=== PATIENT | male | born 1940 | race Caucasian/White ===

== ENCOUNTER 2016-12-05 14:19 | Inpatient (IN) | payer MEDICARE ==
[~2016-12-05] VITALS: Ht 175.3 cm; Wt 93.1 kg
[2016-12-06] MEDS ORDERED: SIMV40TA PO (08:33)
[2016-12-06] MEDS ORDERED: METF500T PO (08:33)
[2016-12-06] MEDS ORDERED: ASPI-110 PO (08:33)
[2016-12-06] MEDS ORDERED: LISI-515 PO (08:33)
[2016-12-06] MEDS ORDERED: PROS5TAB PO (08:33)
[2016-12-06] MEDS ORDERED: COQ-100C5 PO (08:33)
[2016-12-12 10:25] VITALS: BP 123/77; PULSE 76; RESP 18; TEMP 98.3; O2SAT 96
[2016-12-12] MEDS ORDERED: METOPROLOL TARTRATE 25 MG TAB PO PRN (10:30)
[2016-12-12] MEDS ORDERED: INSULIN HUMAN REGULAR 1,000 UNITS/10 ML VIAL SQ PRN (10:30)
[2016-12-12] MEDS ORDERED: CHLORHEXIDINE GLUCONATE 2 % 1 PACK (2 CLOTHS) TOPICAL PRN (10:30)
[2016-12-12] MEDS ORDERED: LACTATED RINGER'S 1000 ML IV PRN (10:30)
[2016-12-12] MEDS ORDERED: POVIDONE IODINE 5% (ANTISEPSIS KIT) 4 APPLICATIONS EACH NARE PRN (10:30)
[2016-12-12] MEDS ORDERED: SODIUM CHLORID 0.9% 500 ML IV PRN (10:30)
[2016-12-12] MEDS ORDERED: GENTAMICIN SULFATE 80 MG/2 ML VIAL ONE (10:34)
[2016-12-12] MEDS ORDERED: VANCOMYCIN HCL 1000 MG VIAL ONE (10:36)
[2016-12-12] MEDS ORDERED: SODIUM CHLOR 0.9% 250 ML INJ 250 ML ONE (10:37)
[2016-12-12] MEDS ORDERED: EXPAREL PERI-ARTICULAR INJECTION (TOTAL VOL. 60 ML) P-ARTICULR SCH ×2 (10:45)
[2016-12-12] MEDS ORDERED: SODIUM CHLORIDE 0.9% IV SCH (10:45)
[2016-12-12] MEDS ORDERED: ceFAZolin 2 GM PREMIX 50 ML IV SCH (10:45)
[2016-12-12] MEDS ORDERED: TRANEXAMIC ACID IV SCH (10:45)
[2016-12-12] MEDS ORDERED: POVIDONE IODINE 7.5% SCRUB 118 ML BOTTLE TOPICAL SCH (10:45)
[2016-12-12] MEDS ORDERED: VANCOMYCIN 1000 MG/NS 250 ML (for <70 kg) IV SCH ×2 (10:45)
--- NOTE | 2016-12-12 11:37 | MH ---
cc: RADHA VALDEZ DATE OF ADMISSION 12/12/2016 ADMISSION DIAGNOSIS Osteoarthritis of the left hip. HISTORY This patient is a 76-year-old white male status post previous right total hip replacement arthroplasty for osteoarthritis. The patient had that surgery performed on 03/23/2013. The patient has done well but now has progressive arthritis of the left hip. He presents now for surgical treatment. The patient notes that he is taking hydrocodone narcotics for pain. He has been using assistive gait aid and has had nonsteroidal anti-inflammatory medications, physical therapy and altered activities. He now presents for surgical treatment of his left hip. PAST MEDICAL HISTORY, SOCIAL HISTORY AND FAMILY HISTORY System see attached notes. REVIEW OF SYSTEMS See attached notes. PHYSICAL EXAMINATION VITAL SIGNS: 5 feet 5 inches, 206 pounds. BMI of 34.5. Blood pressure 138/80. HEENT: Normocephalic, atraumatic. Pupils equal, round, reactive to light and accommodation. Extraocular motions intact. NECK: Supple. CHEST: Clear. HEART: Regular rate and rhythm. ABDOMEN: Soft, nontender, normoactive bowel sounds. MUSCULOSKELETAL: Left hip restricted range of motion, pain with range of motion especially internal and external rotation. Well-healed anterior incision over the right hip. IMPRESSION Osteoarthritis of the left hip. PLAN Left total hip replacement arthroplasty, direct anterior exposure. CONSENT The risks of surgery including infection, bleeding, loss of motion, continued pain, need for further surgery, neurologic and vascular injury. The patient understands these issues and wishes to press on with surgery as outlined above. Radha Valdez MD MCG/KK /6:24 PM /9:53 PM
[2016-12-12] MEDS ORDERED: PHENYLEPHRINE HCL 10 MG/ML VIAL IV ONE (12:00)
[2016-12-12] MEDS ORDERED: fentaNYL CITRATE 250 MCG/5 ML AMP ONE ×2 (12:16→15:44)
[2016-12-12] MEDS ORDERED: MIDAZOLAM HCL 2 MG/2 ML VIAL ONE (12:16)
[2016-12-12] MEDS ORDERED: FAMOTIDINE 20 MG/2 ML VIAL ONE (12:16)
[2016-12-12] MEDS ORDERED: DEXAMETHASONE SOD PHOS 4 MG/ML VIAL ONE (12:16)
[2016-12-12] MEDS ORDERED: ACETAMINOPHEN 1000 MG/100 ML VIAL IV ONE (12:21)
[2016-12-12] MEDS ORDERED: ONDANSETRON HCL 4 MG/2 ML VIAL IV PUSH ONE (12:55)
[2016-12-12] MEDS ORDERED: PROPOFOL 200 MG/20 ML AMP IV ONE (12:55)
[2016-12-12] MEDS ORDERED: PHENYLEPH/NS 1000 MCG/10 ML SYR IV ONE (12:55)
[2016-12-12] MEDS ORDERED: ePHEDrine/NS 25 MG/5 ML SYR IV ONE (12:55)
[2016-12-12] MEDS ORDERED: VECURONIUM BROMIDE 20 MG VIAL IV ONE (12:56)
[2016-12-12] MEDS ORDERED: DEXTROSE 50% IN WATER 50 ML VIAL(D50) IV PRN (15:00)
[2016-12-12] MEDS ORDERED: NALOXONE HCL 0.4 MG/ML AMP IV PRN ×2 (15:00)
[2016-12-12] MEDS ORDERED: MISCELLANEOUS NURSING INFORMATION XX PRN (15:00)
[2016-12-12] MEDS ORDERED: MISCELLANEOUS PHARMACY INFORMATION XX ONE (15:00)
[2016-12-12] MEDS ORDERED: HYDROmorphone HCL PF 1 MG/ML VIAL IV PUSH PRN (15:00)
[2016-12-12] MEDS ORDERED: GLUCAGON 1 MG/ML VIAL IM/SQ PRN (15:00)
[2016-12-12] MEDS ORDERED: Post-op Orders (for Pharmacy) MISC XX ONE (15:00)
[2016-12-12] MEDS ORDERED: HYDROmorphone HCL PCA 6 MG/30 ML IV SCH (15:00)
[2016-12-12] MEDS ORDERED: SODIUM CHLORIDE 0.9% FLUSH 5 ML FLUSH IVF PRN (15:00)
--- NOTE | 2016-12-12 15:07 | PD.OP ---
cc: Candido Velasco MD Operative Report Date of Surgery: Dec 12, 2016 Preoperative Diagnosis: Osteoarthritis left hip, severe Postoperative Diagnosis: Same Procedure: Left total hip replacement arthroplasty, direct anterior exposure Anesthesia: Gen. 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 Despite extensive conservative care this patient continues to be painful and now presents for surgical treatment. NOTE: Luci Caballero PA-C was present for the entire surgical procedure as my starch treating assistant. In my medical opinion her skill and care was necessary for the proper management of this patient. COMPONENTS: COMPANY: [employer] CUP: [place], 54 mm, 100 series, gription surface LINER: Altrx 36 mm, neutral STEM: [place], size 12, standard offset, hydroxyapatite-coated HEAD: 36, +5, metal, 12/14 taper PROCEDURE: This patient was brought to the operating room and anesthetized in the supine position and positioned on the fracture table with both legs held extended. The left hip and leg was scrubbed with alcohol followed by Hibiclens followed by ChloraPrep and draped sterilely. Antibiotics were given within routine time window and a timeout was done. A 4 inch incision was made starting 2 cm distal and 2 cm lateral to the anterior superior iliac spine. The fascia eleazar was opened longitudinally. The interval between the fascia eleazar and the rectus was opened down to the capsule of the hip joint. Retractors were positioned allowing good visualization of the capsule. This was opened longitudinally and flaps were created. Stay sutures were utilized. Exposure was excellent. The neck was cut at the proper location using fluoroscopy as a guide. The head was removed. Deep retractors were positioned allowing good visualization of the acetabulum. Acetabulum was deepened down to the floor starting with a proper size reamer and reaming up to 53 mm. A trial was utilized. Fluoroscopy was used to check position and confirmed satisfactory alignment. The rim was reamed with a 54 mm reamer and the final cup was positioned in approximately 20 of anteversion and 40-45 of abduction. Position was satisfactory. A single hole eliminator was positioned followed by the final liner. The lifting hook was utilized. The leg was dropped to the floor, maximally externally rotated and brought across the midline. Retractors were positioned. A box osteotome was utilized followed by progressive broaching to the proper stem size. Trial reduction showed excellent alignment and fit. With 60 of external rotation the leg was dropped to the floor without evidence of anterior subluxation. The wound was irrigated. The final stem was inserted and was found to be very stable. The final reduction using the final head. Stability was as previously noted. Intraoperative x-rays were taken. The wound was irrigated copiously. Hemostasis was controlled. Local anesthesia was utilized. The capsule was repaired with #2 Tycron sutures. The fascia eleazar was repaired with running 0 PDS on a loop. Subcutaneous tissue was approximated with 2-0 Vicryl and skin with running intradermal 3-0 Vicryl followed by Steri-Strips. A sterile dressing was applied. The patient was awakened and taken to the recovery room in satisfactory condition. FINDINGS: There was severe osteoarthritis of the left hip. Large circumferential osteophytes were removed with a combination of osteotomes and [place]. The final solution appeared to be excellent. There was no complication that was appreciated. Candido Velasco MD Dec 12, 2016 15:07
[2016-12-12] MEDS ORDERED: HYDR-3580 PO (15:09)
[2016-12-12] MEDS ORDERED: XARE10TA PO (15:09)
--- NOTE | 2016-12-12 15:09 | RADRPT ---
EXAM DATE/TIME: 12/12/2016 13:01 [facility] COMPARISON: FLUOROSCOPY PORTABLE UP TO 1HR, December 12, 2016, 0:00. INDICATIONS : Total left hip replacement. MEDICAL HISTORY : None. SURGICAL HISTORY : None. ENCOUNTER: Initial ACUITY: 1 day PAIN SCORE: Non-responsive. LOCATION: Left hip. FINDINGS: The patient is post left total hip arthroplasty. Orthopedic hardware is well-positioned. The alignmen t is good. No acute fracture is seen. CONCLUSION: 1. Orthopedic hardware in excellent position. Enrique Diego MD on December 12, 2016 at 15:07 Board Certified Radiologist. This report was verified electronically.
[2016-12-12] MEDS ORDERED: DO NOT ADM ANY ANTICOAGULANT DRUGS PRN (15:30)
[2016-12-12] MEDS ORDERED: *HYDROmorphone PF 1 MG VIAL PERIprocedural Use ONLY ONE (15:46)
[2016-12-12] MEDS: INSULIN NovoLIN REGULAR SUPPLEMENTAL SCALE SQ SCH ×2 (16:00→21:00)
[2016-12-12] MEDS: LACTATED RINGER'S 1000 ML INJ 1,000 ML IV SCH (16:02)
[2016-12-12 19:00] VITALS: BP 93/55; PULSE 82; RESP 17; TEMP 97.6; O2SAT 94
[2016-12-12] MEDS: SODIUM CHLORIDE 0.9% FLUSH 5 ML FLUSH IVF SCH (21:00)
[2016-12-12] MEDS: PCA - TOTAL MG DILAUDID DELIVERED PER SHIFT OTHER SCH (21:13)
[2016-12-12] MEDS: SENNOSIDES 8.6 MG TAB PO SCH (21:16)
[2016-12-12] MEDS: PRAVASTATIN SOD 80 MG TAB PO SCH (21:16)
[2016-12-12] MEDS: MAGNESIUM HYDROXIDE SUSP 30 ML CUP PO SCH (21:16)
[2016-12-13] VITALS (9 sets, daily range): BP systolic 104–148; BP diastolic 60–85; PULSE 75–95; RESP 17–20; TEMP 96.4–99.6; O2SAT 92–100
[2016-12-13] MEDS: LACTATED RINGER'S 1000 ML INJ 1,000 ML IV SCH ×2 (03:10→14:15)
[2016-12-13] MEDS: INSULIN NovoLIN REGULAR SUPPLEMENTAL SCALE SQ SCH ×4 (05:50→20:51)
[2016-12-13] MEDS: PCA - TOTAL MG DILAUDID DELIVERED PER SHIFT OTHER SCH (05:50)
[2016-12-13 07:12] LABS: HEMATOCRIT 35.6 % (39.0-51.0); REVIEW FLAG FINAL
[2016-12-13] MEDS ORDERED: COMMODE 3-IN-11 MIS (08:12)
[2016-12-13] MEDS ORDERED: WALKER WHEELS/F1 MIS (08:12)
--- NOTE | 2016-12-13 08:13 | HHI.DCPOC ---
Discharge Care Plan Diagnosis: (1) Left hip pain (2) Osteoarthritis of left hip Your Health Problems Are: Incision/Drains Swelling Goals to Promote Your Health * To prevent worsening of your condition and complications * To maintain your health at the optimal level Directions to Meet Your Goals Take your medications as prescribed Follow your dietary instruction Follow activity as directed Keep your appointments as scheduled Take your immunizations and boosters as scheduled If your symptoms worsen call your PCP, if no PCP go to Urgent Care Center or Emergency Room Smoking is Dangerous to Your Health. Avoid second hand smoke Call the 24-hour hour crisis hotline for domestic abuse at Angela Mares Dec 13, 2016 08:13
--- NOTE | 2016-12-13 08:15 | HHI.DS ---
Discharge Summary Admission Date Dec 12, 2016 at 09:23 Discharge Date: Dec 15, 2016 Admitting Diagnosis see below Diagnosis: (1) Left hip pain Diagnosis: Principal (2) Osteoarthritis of left hip Diagnosis: Principal Procedures Left total hip arthroplasty, direct anterior approach Brief History This is a 76 year old male patient with a history of left hip pain. He has a history of bilateral his arthritis. He had a successful right total hip replacement 4-5 years ago and did very well. He pursued conservative treatment for his left hip for several years but his function continued to decline. Updated imaging studies were performed and he was found to have severe osteoarthritis of his left hip. Surgical treatment was eventually recommended in the form of left total hip arthroplasty and he elected to move forward. He presents for the above procedure. CBC/BMP: 12/13/16 0622 Significant Findings Laboratory Tests Test 12/13/16 06:22 Hemoglobin 11.8 GM/DL (13.0-17.0) Hematocrit 35.6 % (39.0-51.0) Hospital Course Surgical treatment was performed on the day of admission without complication. He recovered well in PACU and was transferred to the orthopaedic floor. Pain was controlled with IV and oral medications. DVT prophylaxis was initiated pod# 1. He was compliant with physical therapy and all restrictions. After 3 days he was found to be stable and discharged to [facility] with instruction to continue his therapy, continue his xarelto for 25 days and to pursue a high fiber diet for 5 days. Pt Condition on Discharge: Stable Discharge Disposition: Discharge to SNF Discharge Instructions Diet Instructions: Diabetic Diet, High Fiber Diet Activities You Can Perform: Weight Bearing as Raheem Additional Activity Instruc.: ANN anterior protocol New Medications: Commode 3-in-1 (Commode 3-in-1) 1 Mis Mis 1 EA .ROUTE DIRECTED #1 Ref 0 EA Walker with Front Wheels (Walker with Front Wheels) 1 Mis Mis 1 EA .ROUTE DIRECTED #1 Ref 0 EA Hydrocodone-Acetaminophen (Hydrocodone-Acetaminophen) 7.5-325 mg Tab 1 TAB PO Q4H PRN PAIN LESS THAN 5 ON SCALE #50 TAB Rivaroxaban (Xarelto) 10 Mg Tab 10 MG PO Q24H Prevent Blood Clot #25 TAB Continued Medications: Aspirin DR (Aspirin 81) 81 Mg Tabdr 81 MG PO DAILY Ref 0 TAB Coenzyme Q10 (Ubidecarenone) (Coq-10 Tr) 100 Mg Cap 100 MG PO DAILY Finasteride (Proscar) 5 Mg Tab 5 MG PO M,W,FR Do not crush. Manage Prostate Problems #30 Ref 0 TAB Lisinopril (Lisinopril) 20 Mg Tab 20 MG PO DAILY #30 Ref 0 TAB Metformin (Metformin) 500 Mg Tab 500 MG PO BIDPC With meals Blood Sugar Management #60 Ref 0 TAB Simvastatin (Simvastatin) 40 Mg Tab 40 MG PO HS Cholesterol Management #30 Ref 0 TAB Angela Mares Dec 13, 2016 08:15
--- NOTE | 2016-12-13 08:17 | PD.ORT.PN ---
Subjective Subjective Remarks Moderate left hip pain but controlled w PO meds. No new radiating leg pain. No CP or SOB. Questions about surgery. Concerned about going home - believes he needs to go to rehab as it was needed after his previous R ANN. Objective Vitals Vital Signs Date Time Temp Pulse Resp B/P Pulse Ox O2 Delivery O2 Flow Rate FiO2 12/13/16 07:50 96 21 12/13/16 05:50 18 12/13/16 04:00 96.4 83 17 116/61 97 12/13/16 00:00 97.2 78 18 122/60 97 12/12/16 21:13 20 12/12/16 19:00 97.6 82 17 93/55 94 12/12/16 17:40 97.7 80 16 109/64 97 Nasal Cannula 3 12/12/16 17:15 82 15 104/63 96 Nasal Cannula 3 12/12/16 16:45 81 16 108/62 96 Nasal Cannula 3 12/12/16 16:30 82 16 105/56 96 Nasal Cannula 3 12/12/16 16:15 79 15 102/59 96 Nasal Cannula 3 12/12/16 16:02 15 12/12/16 16:00 79 16 113/68 95 Nasal Cannula 3 12/12/16 15:45 83 15 111/65 99 Nasal Cannula 3 12/12/16 15:40 98.6 84 15 118/71 99 Nasal Cannula 3 12/12/16 10:25 98.3 76 18 123/77 96 I/O 12/12/16 12/12/16 12/12/16 12/13/16 12/13/16 12/13/16 07:00 15:00 23:00 07:00 15:00 23:00 Intake Total 2280 ml 1683 ml Output Total 2750 ml 2500 ml Balance -470 ml -817 ml Intake Oral 960 ml 480 ml IV Total 120 ml 1203 ml Other 1200 ml Output Urine Total 2250 ml 2500 ml Estimated Blood Loss 500 ml # Bowel Movements 0 0 Result Diagram: 12/13/16 0622 Procedures Left total hip arthroplasty, direct anterior approach Objective Remarks Laying in bed NAD VSS LLE Hip dressing c/d/i, mild swelling, no active drainage, no erythema +motor at, +sens +nvi, neg homans Assessment & Plan Ortho Post Op Day #: 1 Problem List: (1) Left hip pain (2) Osteoarthritis of left hip Assessment and Plan pod#1 s/p L ANN, 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 D/C mullins cath. Xarelto 10mg qd for 25 days. PT - WBAT LLE. Anterior ann protocol. Hold dressing changes unless saturated. D/C planning, likely SNF friday. DME written. Angela Mares Dec 13, 2016 08:17
[2016-12-13] MEDS: metFORMIN HCL 500 MG TAB PO SCH ×2 (08:37→18:16)
[2016-12-13] MEDS: LISINOPRIL 20 MG TAB PO SCH (08:37)
[2016-12-13] MEDS: MAGNESIUM HYDROXIDE SUSP 30 ML CUP PO SCH ×2 (08:37→20:44)
[2016-12-13] MEDS: SODIUM CHLORIDE 0.9% FLUSH 5 ML FLUSH IVF SCH ×2 (08:41→20:51)
[2016-12-13] MEDS: ACETAMINOPHEN/HYDROcodone 325 MG/7.5 MG TAB PO PRN ×3 (10:03→20:45)
[2016-12-13] MEDS: RIVAROXABAN 10 MG TAB PO SCH (14:01)
[2016-12-13] MEDS: PRAVASTATIN SOD 80 MG TAB PO SCH (20:44)
[2016-12-13] MEDS: SENNOSIDES 8.6 MG TAB PO SCH (20:44)
[2016-12-14] VITALS: BP 113/60; PULSE 95; RESP 17; TEMP 97.6; O2SAT 94
[2016-12-14] MEDS: LACTATED RINGER'S 1000 ML INJ 1,000 ML IV SCH ×3 (00:40→20:46)
[2016-12-14] MEDS: ACETAMINOPHEN/HYDROcodone 325 MG/7.5 MG TAB PO PRN ×3 (02:29→21:36)
[2016-12-14 04:00] VITALS: BP 138/68; PULSE 90; RESP 16; TEMP 96.6; O2SAT 97
[2016-12-14] MEDS: INSULIN NovoLIN REGULAR SUPPLEMENTAL SCALE SQ SCH ×4 (05:48→20:44)
[2016-12-14 08:00] VITALS: BP 145/70; PULSE 88; RESP 18; TEMP 98.5; O2SAT 93
[2016-12-14] MEDS: metFORMIN HCL 500 MG TAB PO SCH ×2 (08:54→18:05)
[2016-12-14] MEDS: LISINOPRIL 20 MG TAB PO SCH (08:54)
[2016-12-14] MEDS: MAGNESIUM HYDROXIDE SUSP 30 ML CUP PO SCH ×2 (08:54→20:44)
[2016-12-14] MEDS: SODIUM CHLORIDE 0.9% FLUSH 5 ML FLUSH IVF SCH ×2 (08:55→20:43)
[2016-12-14] MEDS ORDERED: FINASTERIDE 5 MG TAB PO SCH (09:00)
[2016-12-14 12:00] VITALS: BP 123/68; PULSE 93; RESP 18; TEMP 97.6; O2SAT 94
--- NOTE | 2016-12-14 12:43 | PD.ORT.PN ---
Subjective Subjective Remarks no CP/SOB. no issues Objective Vitals Vital Signs Date Time Temp Pulse Resp B/P Pulse Ox O2 Delivery O2 Flow Rate FiO2 12/14/16 08:00 98.5 88 18 145/70 93 12/14/16 04:00 96.6 90 16 138/68 97 12/14/16 03:17 18 12/14/16 00:00 97.6 95 17 113/60 94 12/13/16 19:00 98.6 92 18 112/62 92 12/13/16 17:01 98.5 12/13/16 16:30 99.6 95 18 148/85 100 12/13/16 16:00 98.6 79 20 124/70 96 I/O 12/13/16 12/13/16 12/13/16 12/14/16 12/14/16 12/14/16 07:00 15:00 23:00 07:00 15:00 23:00 Intake Total 1683 ml 960 ml 480 ml 500 ml Output Total 2500 ml 800 ml 520 ml 600 ml Balance -817 ml 160 ml -40 ml -100 ml Intake Oral 480 ml 960 ml 480 ml 500 ml IV Total 1203 ml Output Urine Total 2500 ml 800 ml 520 ml 600 ml # Bowel Movements 0 0 0 0 Result Diagram: 12/13/16 0622 Procedures Left total hip arthroplasty, direct anterior approach Objective Remarks Laying in bed NAD VSS LLE Hip dressing c/d/i, mild swelling, no active drainage, no erythema +motor at, +sens +nvi, neg homans Assessment & Plan Problem List: (1) Left hip pain (2) Osteoarthritis of left hip Assessment and Plan POD#2 s/p L ANN, anterior No issues. Doing well. Wants to go home tomorrow Xarelto 10mg qd for 25 days. PT - WBAT LLE. Anterior ann protocol. Hold dressing changes unless saturated. D/C planning, SNF friday. DME written. Jon Moss Jr., MD Dec 14, 2016 12:43
[2016-12-14] MEDS: RIVAROXABAN 10 MG TAB PO SCH (14:58)
[2016-12-14 16:00] VITALS: BP 117/65; PULSE 89; RESP 18; TEMP 97.9; O2SAT 93
[2016-12-14 20:00] VITALS: BP 116/66; PULSE 93; RESP 16; TEMP 97.3; O2SAT 95
[2016-12-14] MEDS: PRAVASTATIN SOD 80 MG TAB PO SCH (20:43)
[2016-12-14] MEDS: SENNOSIDES 8.6 MG TAB PO SCH (20:44)
[2016-12-15] VITALS: BP 117/65; PULSE 87; RESP 18; TEMP 99.7; O2SAT 95
[2016-12-15] MEDS: ACETAMINOPHEN/HYDROcodone 325 MG/7.5 MG TAB PO PRN (04:42)
[2016-12-15] MEDS: INSULIN NovoLIN REGULAR SUPPLEMENTAL SCALE SQ SCH ×2 (06:44→11:00)
[2016-12-15 08:00] VITALS: BP 117/62; PULSE 87; RESP 16; TEMP 97.9; O2SAT 95
[2016-12-15] MEDS: SODIUM CHLORIDE 0.9% FLUSH 5 ML FLUSH IVF SCH (09:00)
[2016-12-15] MEDS: MAGNESIUM HYDROXIDE SUSP 30 ML CUP PO SCH (09:00)
[2016-12-15] MEDS: LISINOPRIL 20 MG TAB PO SCH (09:00)
[2016-12-15] MEDS: metFORMIN HCL 500 MG TAB PO SCH (09:42)
[2016-12-15 12:00] VITALS: BP 124/66; PULSE 97; RESP 16; TEMP 96.9; O2SAT 95
[2016-12-15] MEDS: RIVAROXABAN 10 MG TAB PO SCH (14:25)
== END 2016-12-15 14:49 | DRG 470 ==
LOC: HSDI 12-12 09:23 → N06B 12-12 18:02
PROVIDERS: ADMIT Orthopaedic Surgery Orthopaedic Surgery of the Spine; ATTEND Orthopaedic Surgery Orthopaedic Surgery of the Spine
PROC: 0SRB02A Replacement of Left Hip Joint with Metal on Polyethylene Synthetic Substitute, Uncemented, Open Approach (ICD-10-PCS; principal; 2016-12-12 12:24)
DX: M16.12 Unilateral primary osteoarthritis, left hip (principal); Q65.89 Other specified congenital deformities of hip
CPT/HCPCS: 73502; 76000; 82948; 85014; 85018; 86850; 86900; 86901; 86920; 94150; C1776; C9290; J0131; J0690; J1100; J1170; J1580; J2250; J2370; J2405; J3010; J3370; J7050; J7120

== ENCOUNTER → 2016-12-06 | Outpatient (CLI) | payer MEDICARE ==
[~2016-12-06] MED LIST: ASPI-110 PO; ASPI-130 PO; CO Q100C9 PO; COMMODE 3-IN-11 MIS; COQ-100C5 PO; GLUCTAB PO; HYDR-3580 PO; LISI-515 PO; LISI20 PO; METF500T PO; PROS5TAB PO; PROS5TAB2 PO; SIMV40 PO; SIMV40TA PO; TAMS0.4C67 PO; TRAM50 PO; WALKER WHEELS/F1 MIS; XARE10TA PO
[2016-12-06 08:19] LABS: AUTOMATED NEUTROPHIL # 5.1 TH/MM3 (1.8-7.7); BASOPHIL # 0.1 TH/MM3 (0-0.2); BASOPHIL % 0.7 % (0.0-2.0); EOSINOPHIL # 0.4 TH/MM3 (0-0.4); EOSINOPHIL % 4.5 % (0.0-4.0); HEMATOCRIT 43.4 % (39.0-51.0); HEMO FLAGS DIFF FINAL; LYMPH % 22.6 % (9.0-44.0); LYMPHOCYTE # 1.8 TH/MM3 (1.0-4.8); MEAN CELL VOLUME 87.5 FL (80.0-100.0); MEAN CORPUSCULAR HEMOGLOBIN 28.6 PG (27.0-34.0); MEAN CORPUSCULAR HGB CONC 32.7 % (32.0-36.0); MONO % 7.6 % (0.0-8.0); NEUT % 64.6 % (16.0-70.0); PLATELET COUNT 243 TH/MM3 (150-450); RED BLOOD COUNT 4.96 MIL/MM3 (4.50-5.90); WHITE BLOOD COUNT 7.9 TH/MM3 (4.0-11.0)
[2016-12-06 08:30] LABS: APTT (PATIENT) 24.5 SEC (24.3-30.1); INTERNATIONAL NORMALIZED RATIO 0.9 RATIO; PROTHROMBIN TIME - PATIENT 10.2 SEC (9.8-11.6)
[2016-12-06 08:40] LABS: BICARBONATE 30.8 MEQ/L (21.0-32.0); POTASSIUM 4.5 MEQ/L (3.5-5.1)
[2016-12-06 09:28] LABS: BLOOD, URINE NEG (NEG); COMMENT (UR) CULT NOT INDICATED; CULTURE IF INDICATED CULT NOT INDICATED; GLUCOSE,URINE NEG (NEG); KETONE, URINE NEG (NEG); NITRITE,URINE NEG (NEG); PH, URINE 5.5 (5.0-8.5); SQUAMOUS EPITHELIAL CELL URINE <1 /hpf (0-5); URINE COLOR YELLOW (YELLW/STRAW)
--- NOTE | 2016-12-06 17:17 | EKG ---
Date Performed: 12/06/2016 Time Performed: 08:08:18 PTAGE: 76 years EKG: Sinus rhythm MARKED LEFT AXIS DEVIATION NONSPECIFIC T-WAVE ABNORMALITY ABNORMAL ECG PREVIOUS TRACING : 02/05/2012 12.48 DOCTOR: Cesar Vee Interpretating Date/Time 12/06/2016 17:15:17
== END ==
LOC: CPRE 07:52
PROVIDERS: ATTEND Orthopaedic Surgery Orthopaedic Surgery of the Spine
DX: Z01.812 Encounter for preprocedural laboratory examination (principal); Z01.810 Encounter for preprocedural cardiovascular examination; M16.11 Unilateral primary osteoarthritis, right hip; R94.31 Abnormal electrocardiogram [ECG] [EKG]; Z79.01 Long term (current) use of anticoagulants
CPT/HCPCS: 36415; 80048; 81001; 85025; 85610; 85730; 93005